=== PATIENT | female | born 1980 | race Two or more races ===

== ENCOUNTER 2020-11-18 14:30 | Emergency (ER) | payer OTHER ==
[~2020-11-18] VITALS: Ht 162.6 cm; Wt 93.4 kg
[2020-11-18] MEDS ORDERED: ACID REDUCER20 M1 (14:45)
[2020-11-18] MEDS ORDERED: TRAZODONE HCL150 MG (14:46)
[2020-11-18] MEDS ORDERED: DICLOFENAC SODI75 MG PO (17:14)
== END 2020-11-18 17:42 | disposition home or self-care (01) ==
LOC: ER 14:30
DX: M54.2 Cervicalgia (principal); M25.512 Pain in left shoulder